=== PATIENT | male | born 1975 | race African-American/Black ===

== ENCOUNTER 2023-03-08 17:51 | Inpatient (IN) | payer OTHER ==
[2023-03-08 19:04] VITALS: BMI 26.1
[2023-03-08] MEDS ORDERED: BENZOCAINE/MENTHOL (CHLORASEPTIC ) LOZENGE MM PRN (23:18)
[2023-03-08] MEDS ORDERED: IBUPROFEN 400 MG TABLET (FP) PO PRN (23:18)
[2023-03-08] MEDS ORDERED: POLYETHYLENE GLYCOL (HEALTHYLAX) 3350 17 GM PACKET PO PRN (23:18)
[2023-03-08] MEDS ORDERED: IBUPROFEN 600 MG TABLET (FP) PO PRN (23:18)
[2023-03-08] MEDS ORDERED: MAGNESIUM HYDROX 2400MG/30ML ORAL SUSPENSION 30 ML CUP PO PRN (23:18)
[2023-03-08] MEDS ORDERED: MAG HYDROX/AL HYDROX/SIMETH 30 ML UNIT-DOSE CUP PO PRN (23:18)
[2023-03-08] MEDS ORDERED: BENZONATATE 200 MG CAPSULE PO PRN (23:18)
[2023-03-08] MEDS ORDERED: LOPERAMIDE HCL 2 MG CAPSULE PO PRN (23:18)
[2023-03-08] MEDS ORDERED: ACETAMINOPHEN 325 MG TABLET (FP) PO PRN (23:18)
[2023-03-08] MEDS ORDERED: guaiFENesin 600 MG TABLET.ER (FP) PO PRN (23:18)
[2023-03-08] MEDS ORDERED: P-EPHED 60MG/TRIPROLIDI 2.5MG TABLET PO PRN (23:18)
[2023-03-08] MEDS ORDERED: COLLOIDAL OATMEAL 1 BAR EACH TP PRN (23:18)
[2023-03-09] MEDS: MELATONIN 5 MG TABLETS PO SCH ×2 (02:32→21:18)
[2023-03-09] MEDS ORDERED: ALBUTEROL SO4 HFA INHALER IH PRN (08:10)
[2023-03-09] MEDS ORDERED: TUBERCULIN PPD 5 TU/0.1ML SYRINGE (IN PATIENT USE ONLY) ID ONE (10:00)
[2023-03-09] MEDS: PRENATAL VITAMINS W/ FOLIC ACID TABLET (FP) PO SCH (10:17)
[2023-03-09] MEDS: amLODIPine BESYLATE 10 MG TABLET (FP) PO SCH (10:17)
[2023-03-09] MEDS: FOLIC ACID 1 MG TABLET (FP) PO SCH (10:17)
[2023-03-09 10:29] LABS: HEMATOCRIT 27.4 % (35.4-49); HEMOGLOBIN 9.3 GM/dL (11.7-16.9); MCH 33.2 pg (25.7-33.7); MCHC 33.8 g/dl (32.0-35.9); MEAN CELL VOLUME 98.2 fl (80-96); MEAN PLT VOLUME 8.7 fl (7.5-11.1); PLATELET COUNT 213 10^3/uL (134-434); RBC 2.79 M/mm3 (4.00-5.60); RDW 14.2 % (11.9-15.9); WHITE BLOOD COUNT 3.2 K/mm3 (4.0-10.0)
[2023-03-09 10:33] LABS: BLOOD UREA NITROGEN 8.2 mg/dL (7-18); CALCIUM 8.9 mg/dL (8.5-10.1)
[2023-03-09 10:36] LABS: CREATININE 0.8 mg/dL (0.55-1.3)
[2023-03-09 10:38] LABS: TOT PROT 6.2 g/dl (6.4-8.2)
[2023-03-09] MEDS: BENZTROPINE MESYLATE 1 MG TABLET PO SCH ×2 (10:42→21:18)
[2023-03-09 13:07] LABS: EPI CELLS 8 /uL (0-25.1); HYALINE CASTS 5 /uL (0-3.1); PH,URINE 5.5 (5.0-8.0); URINE APPEARANCE CLEAR; URINE BACTERIA 65 /uL (0-1359); URINE BILIRUBIN 1+ (NEGATIVE); URINE COLOR DK YELLOW; URINE GLUCOSE (UA) NEGATIVE (NEGATIVE); URINE KETONE NEGATIVE (NEGATIVE); URINE LEUK ESTERASE 1+ (NEGATIVE); URINE NITRITE NEGATIVE (NEGATIVE); URINE PROTEIN NEGATIVE (NEGATIVE); URINE RBC 6 /uL (0-23.9); URINE WBC 17 /uL (0-25.8)
[2023-03-09 13:12] LABS: SYPHILIS W/ RPR CONF NON-REACTIVE (NONREACTIVE)
[2023-03-09] MEDS: THIAMINE HCL 100 MG TABLET (FP) PO SCH (21:18)
[2023-03-10] MEDS: FOLIC ACID 1 MG TABLET (FP) PO SCH (10:06)
[2023-03-10] MEDS: BENZTROPINE MESYLATE 1 MG TABLET PO SCH ×2 (10:06→21:18)
[2023-03-10] MEDS: amLODIPine BESYLATE 10 MG TABLET (FP) PO SCH (10:07)
[2023-03-10] MEDS: PRENATAL VITAMINS W/ FOLIC ACID TABLET (FP) PO SCH (10:07)
[2023-03-10] MEDS: MELATONIN 5 MG TABLETS PO SCH (21:17)
[2023-03-10] MEDS: THIAMINE HCL 100 MG TABLET (FP) PO SCH (21:17)
[2023-03-11] MEDS: BENZTROPINE MESYLATE 1 MG TABLET PO SCH ×2 (10:10→21:32)
[2023-03-11] MEDS: amLODIPine BESYLATE 10 MG TABLET (FP) PO SCH (10:10)
[2023-03-11] MEDS: PRENATAL VITAMINS W/ FOLIC ACID TABLET (FP) PO SCH (10:10)
[2023-03-11] MEDS: FOLIC ACID 1 MG TABLET (FP) PO SCH (10:10)
[2023-03-11] MEDS: THIAMINE HCL 100 MG TABLET (FP) PO SCH (21:31)
[2023-03-11] MEDS: MELATONIN 5 MG TABLETS PO SCH (21:32)
[2023-03-12] MEDS: BENZTROPINE MESYLATE 1 MG TABLET PO SCH ×2 (09:41→21:09)
[2023-03-12] MEDS: PRENATAL VITAMINS W/ FOLIC ACID TABLET (FP) PO SCH (09:41)
[2023-03-12] MEDS: amLODIPine BESYLATE 10 MG TABLET (FP) PO SCH (09:41)
[2023-03-12] MEDS: FOLIC ACID 1 MG TABLET (FP) PO SCH (09:41)
[2023-03-12] MEDS: MELATONIN 5 MG TABLETS PO SCH (21:10)
[2023-03-12] MEDS: THIAMINE HCL 100 MG TABLET (FP) PO SCH (21:10)
[2023-03-13 09:06] VITALS: RESP 16
[2023-03-13] MEDS: BENZTROPINE MESYLATE 1 MG TABLET PO SCH ×2 (09:51→21:26)
[2023-03-13] MEDS: PRENATAL VITAMINS W/ FOLIC ACID TABLET (FP) PO SCH (09:52)
[2023-03-13] MEDS: amLODIPine BESYLATE 10 MG TABLET (FP) PO SCH (09:52)
[2023-03-13] MEDS: FOLIC ACID 1 MG TABLET (FP) PO SCH (09:52)
[2023-03-13] MEDS: THIAMINE HCL 100 MG TABLET (FP) PO SCH (21:27)
[2023-03-13] MEDS: MELATONIN 5 MG TABLETS PO SCH (21:27)
[2023-03-14] MEDS: amLODIPine BESYLATE 10 MG TABLET (FP) PO SCH (09:45)
[2023-03-14] MEDS: PRENATAL VITAMINS W/ FOLIC ACID TABLET (FP) PO SCH (09:45)
[2023-03-14] MEDS: FOLIC ACID 1 MG TABLET (FP) PO SCH (09:45)
[2023-03-14] MEDS: BENZTROPINE MESYLATE 1 MG TABLET PO SCH ×2 (09:45→21:26)
[2023-03-14] MEDS: THIAMINE HCL 100 MG TABLET (FP) PO SCH (21:27)
[2023-03-14] MEDS: MELATONIN 5 MG TABLETS PO SCH (21:27)
[2023-03-15] MEDS: amLODIPine BESYLATE 10 MG TABLET (FP) PO SCH (09:07)
[2023-03-15] MEDS: BENZTROPINE MESYLATE 1 MG TABLET PO SCH (09:07)
[2023-03-15] MEDS: PRENATAL VITAMINS W/ FOLIC ACID TABLET (FP) PO SCH (09:07)
[2023-03-15] MEDS: FOLIC ACID 1 MG TABLET (FP) PO SCH (09:07)
[2023-03-15 09:13] VITALS: BP 106/72; PULSE 103; TEMP 97.3
[2023-03-23] MEDS ORDERED: HALOPERIDOL DECANOATE 100 MG/ML IM ONE (10:00)
== END 2023-03-15 09:28 | disposition home or self-care (01) | DRG 895 ==
LOC: YASAS 17:51 → Y3E 03-09 00:47
PROVIDERS: ADMIT Psychiatry & Neurology Pain Medicine; ATTEND Surgery
PROC: HZ42ZZZ Group Counseling for Substance Abuse Treatment, Cognitive-Behavioral (ICD-10-PCS; principal; 2023-03-09)
DX: F10.20 Alcohol dependence, uncomplicated (principal); F20.9 Schizophrenia, unspecified; I10 Essential (primary) hypertension; J45.909 Unspecified asthma, uncomplicated; Z87.891 Personal history of nicotine dependence
CPT/HCPCS: 36415; 80053; 81003; 85027; 86780; 86803; 87635